=== PATIENT | male | born 1970 | race Two or more races ===

== ENCOUNTER 2023-11-10 20:02 | Emergency (ER) | payer OTHER ==
[~2023-11-10] VITALS: Ht 167.6 cm; Wt 107.5 kg
[~2023-11-10 20:02] MED LIST: SYNTHROID50 MCG PO
[2023-11-10] MEDS ORDERED: OMEPRAZOLE-BIC1 EAC1 (20:23)
[2023-11-10] MEDS ORDERED: 0.9 % SODIUM CHLORIDE 1,000 ML IV STA (20:39)
[2023-11-10] MEDS ORDERED: ONDANSETRON HCL 2 MG/ML VIAL IV STA (20:39)
[2023-11-10] MEDS ORDERED: ONDANSETRON HCL 2 MG/ML VIAL ONE (20:54)
[2023-11-10 21:04] LABS: HEMATOCRIT 44.6 % (39.0-48.0); HEMOGLOBIN 15.6 g/dL (13-16.00); MEAN CELL VOLUME 87.9 fL (80.0-100.00); MEAN CORPUSCULAR HEMOGLOBIN 30.8 pg (27.00-32.0); MEAN CORPUSCULAR HGB CONC 35.1 g/dl (32.0-36.0); PLATELET COUNT 230 K/uL (150-450); RED BLOOD COUNT 5.07 M/uL (4.00-6.00); RED CELL DISTRIBUTION WIDTH 12.9 % (11.5-14.5)
[2023-11-10 21:19] LABS: CALCIUM 9.4 mg/dL (8.5-10.1); CREATININE SERUM 0.82 mg/dL (0.70-1.30); GFR 98.28; POTASSIUM 3.54 mEq/L (3.5-5.1)
[2023-11-10 22:22] LABS: PH,URINE 5.5 (5.0-8.0); URINE APPEARANCE Cloudy; URINE BILIRRUBIN Negative (NEGATIVE); URINE BLOOD Negative; URINE COLOR Yellow; URINE GLUCOSE Negative (NEGATIVE); URINE KETONE Trace (NEGATIVE); URINE LEUKOCYTE Negative; URINE NITRATE Negative; URINE PROTEIN Negative (NEGATIVE); URINE UROBILINOGEN 0.2 E.U./dl
[2023-11-10 22:23] LABS: URINE BACTERIA 11.3 uL (0.0-1933); URINE EPITHELIAL CELLS 3.3 uL (0.0-38.8); URINE RBC 2.1 uL (0.0-20.8); URINE WBC 5.2 uL (0.0-23.2)
[2023-11-10 22:29] LABS: URINE CAST 0.15 uL (0.0-1.40)
== END 2023-11-11 00:08 | disposition home or self-care (01) ==
LOC: ER 20:04
PROVIDERS: Emergency Medicine
DX: K52.89 Other specified noninfective gastroenteritis and colitis (principal); R19.7 Diarrhea, unspecified; E03.8 Other specified hypothyroidism

== ENCOUNTER 2024-07-25 14:47 | Emergency (ER) | payer OTHER ==
[~2024-07-25] VITALS: Ht 170.2 cm; Wt 107.5 kg
[~2024-07-25 14:47] MED LIST changes: +OMEPRAZOLE-BIC1 EAC1
[2024-07-25] MEDS ORDERED: SYNTHROID175 MCG PO (15:17)
[2024-07-25] MEDS ORDERED: TETANUS & DIPHTHERIA TOX,ADULT 0.5 ML VIAL IM ONE (16:30)
[2024-07-25] MEDS ORDERED: ACETAMINOPHEN 500 MG GEL..CAP PO ONE ×2 (16:30→16:39)
== END 2024-07-25 18:28 | disposition home or self-care (01) ==
LOC: ER 14:50
DX: S61.211A Laceration without foreign body of left index finger without damage to nail, initial encounter (principal); W26.8XXA Contact with other sharp object(s), not elsewhere classified, initial encounter; Y93.89 Activity, other specified; Y92.89 Other specified places as the place of occurrence of the external cause; Y99.9 Unspecified external cause status